=== PATIENT | male | born 1960 | race Caucasian/White ===

== ENCOUNTER → 2017-03-07 | Outpatient (CLI) | payer BC ==
[~2017-03-07] MED LIST: ALBU1AER9 INH; FEXO1TAB46 PO
[2017-03-07 13:02] LABS: ALT/SGPT 37 U/L (12-78); AST/SGOT 24 U/L (15-37); BLOOD UREA NITROGEN 23 mg/dl (7-18); BUN/CREATININE RATIO 21.3 (10-20); CALCIUM 8.8 mg/dl (8.5-10.1); CARBON DIOXIDE 28 mmol/L (21-32); CHLORIDE 108 mmol/L (98-107); GLUCOSE 91 mg/dl (70-99); POTASSIUM 4.2 mmol/L (3.5-5.1); SODIUM 142 mmol/L (136-145)
[2017-03-07 13:08] LABS: ALB/GLOB RATIO 1.3 (0.9-2); ALKALINE PHOSPHATASE 72 U/L (45-117); CHOLESTEROL 181 mg/dl (0-200); CHOLESTEROL/HDL RATIO 5.3; HDL CHOLESTEROL 34 mg/dl; LDL CHOLESTEROL CALCULATED 121 mg/dl; PROSTATE SPECIFIC ANTIGEN 0.989 ng/ml (0.000-4.000); TRIGLYCERIDES 132 mg/dl (0-150); VERY LOW DENSITY LIPOPROT CALC 26 mg/dl
[2017-03-07 15:22] LABS: LYME DISEASE AB IGG NEG (NEG)
[2017-03-07 15:25] LABS: LYME DISEASE AB IGM NEG (NEG)
== END | disposition home or self-care (01) ==
LOC: C.LABBFT 07:49
PROVIDERS: ATTEND Nurse Practitioner
DX: Z00.00 Encounter for general adult medical examination without abnormal findings (principal); T14.8 Other injury of unspecified body region; W57.XXXA Bitten or stung by nonvenomous insect and other nonvenomous arthropods, initial encounter; Z12.5 Encounter for screening for malignant neoplasm of prostate; Z13.6 Encounter for screening for cardiovascular disorders; Z13.1 Encounter for screening for diabetes mellitus